=== PATIENT | male | born 1965 | race Caucasian/White ===

== ENCOUNTER 2018-04-26 07:37 | Day surgery (SDC) | payer BC ==
[~2018-04-26] VITALS: Ht 177.8 cm; Wt 124.7 kg
[~2018-04-26 07:37] MED LIST: ASPI1CHW2 PO; BYDU1INJ SC; CETI10TA PO; CORG20TA2 PO; DIGO0.259 PO; FARX1TAB3 PO; FISH1200 PO; FLON1SPR; GLUC15002 PO; HUMA100I5 SQ; IBUP200C25 PO; LIDOCAINE 2% INJ 100 MG/5 ML SDV (FOR ANES.) As Ordered ONE; LISI10TA4 PO; METF500T4 PO; POTA99TA PO; PROPOFOL 200 MG/20 ML VIAL As Ordered ONE; ROSU10TA5 PO; TRES1INJ SQ; VITA10006 PO; VITA100066 PO; VITA400C67 PO
[2018-04-26] MEDS ORDERED: NS 1,000 ML IV ONE (08:30)
[2018-04-26] MEDS ORDERED: PROPOFOL 200 MG/20 ML VIAL As Ordered ONE (09:17)
--- NOTE | 2018-04-26 09:27 | ROOR ---
Patient Name: Alanna Hirsch Procedure Date: 04/26/2018 9:05 AM Date of : 1965 Age: 52 Room: [facility] Gender: Male Note Status: Finalized Procedure: Colonoscopy Indications: Screening for colorectal malignant neoplasm Providers: Filippo ALLEN MD Referring MD: Ashlee Llanes NP Requesting Provider: Medicines: Monitored Anesthesia Care Complications: No immediate complications. Procedure: Pre-Anesthesia Assessment: - The heart rate, respiratory rate, oxygen saturations, blood pressure, adequacy of pulmonary ventilation, and response to care were monitored throughout the procedure. The Colonoscope was introduced through the anus and advanced to the cecum, identified by appendiceal orifice and ileocecal valve. The colonoscopy was performed without difficulty. The patient tolerated the procedure well. The quality of the bowel preparation was good. Findings: The perianal and digital rectal examinations were normal. A 8 mm polyp was found in the splenic flexure. The polyp was sessile. The polyp was removed with a cold snare. Resection and retrieval were complete. Mild sigmoid diverticulosis and small internal hemorrhoids. The exam was otherwise without abnormality on direct and retroflexion views. Impression: - One 8 mm polyp at the splenic flexure, removed with a cold snare. Resected and retrieved. - Mild sigmoid diverticulosis and small internal hemorrhoids. - The examination was otherwise normal on direct and retroflexion views. Recommendation: - Repeat colonoscopy in 5 years for surveillance. Filippo Allen MD Filippo ALLEN MD 04/26/2018 9:26:30 AM This report has been signed electronically. Number of Addenda: 0 Note Initiated On: 04/26/2018 9:05 AM Estimated Blood Loss: Estimated blood loss: none.
[2018-04-26 09:45] VITALS: BP 134/79
== END 2018-04-26 09:56 | disposition home or self-care (01) ==
LOC: M OPP 07:37
PROVIDERS: ATTEND Internal Medicine Gastroenterology
DX: Z12.11 Encounter for screening for malignant neoplasm of colon (principal); D12.3 Benign neoplasm of transverse colon; E10.9 Type 1 diabetes mellitus without complications; F17.220 Nicotine dependence, chewing tobacco, uncomplicated; R00.0 Tachycardia, unspecified; Z79.4 Long term (current) use of insulin; Z79.82 Long term (current) use of aspirin; Z79.899 Other long term (current) drug therapy; Z80.52 Family history of malignant neoplasm of bladder

== ENCOUNTER → 2018-12-06 | Outpatient (REF) | payer BC ==
[~2018-12-06] MED LIST changes: -LIDOCAINE 2% INJ 100 MG/5 ML SDV (FOR ANES.) As Ordered ONE; +METF-791 PO; -METF500T4 PO; -PROPOFOL 200 MG/20 ML VIAL As Ordered ONE; -ROSU10TA5 PO; +ROSU10TA6 PO
[2018-12-06 12:26] LABS: CREATININE, URINE 38.3 MG/DL; MALB URINE SIEMENS 7.7 MG/L; MAU/CREAT RATIO 20.1 MCG/MG (0.0-30.0)
== END ==
LOC: M SFHCCLAY 09:19
PROVIDERS: ATTEND Nurse Practitioner Family
DX: E11.9 Type 2 diabetes mellitus without complications (principal); I47.1 Supraventricular tachycardia; E78.2 Mixed hyperlipidemia; I10 Essential (primary) hypertension; I83.893 Varicose veins of bilateral lower extremities with other complications

== ENCOUNTER → 2019-09-25 | Outpatient (CLI) | payer BC ==
[~2019-09-25] MED LIST changes: -METF-791 PO; +METF-838 PO
--- NOTE | 2019-09-25 12:15 | REP ---
BILATERAL LOWER EXTREMITY VENOUS ULTRASOUND WITH DOPPLER: Reflux exam. HISTORY: Known venous insufficiency. FINDINGS: The deep veins are anechoic and fully compressible on two-dimensional scanning from the groin to the popliteal fossa bilaterally. Color flow imaging is homogeneous. Spectral Doppler interrogation demonstrates intact respiratory variation in flow normal manual augmentation of flow. There is no evidence of deep vein thrombosis. REFLUX FINDINGS: There is extensive bilateral deep and superficial system reflux. Multiple collaterals are seen off the greater saphenous vein bilaterally. Large varicose veins are seen connecting to the anterior accessory with each leg. In the right, the greater saphenous vein measures 5 mm, 4 mm, and 5 mm in AP dimension at the proximal, mid thigh, and knee level respectively. There is 5-second duration reflux in the proximal greater saphenous vein at the saphenofemoral junction with standing and bedtime. There is 4-second duration reflux at the knee in the greater saphenous vein with standing. On the right, there is 2-second duration reflux in the common femoral vein segment with bed tilt. There is 9-second duration reflux in the mid anterior accessory greater saphenous vein. There is 5-second duration reflux in the proximal superficial femoral vein on the right. The lesser saphenous vein on the right measures 3 mm in diameter. On the left, the greater saphenous vein dimensions are 5 mm, 4 mm, and 4 mm at the proximal, mid and knee level respectively. There is 2-second duration reflux at midthigh level in the greater saphenous vein with standing and 5-second duration reflux at the knee in the greater saphenous vein. There is 6-second duration reflux in the common femoral vein with the bed tilt and standing. 5-second duration reflux is observed in the anterior accessory greater saphenous vein. No other deep system reflux is seen on the left. The lesser saphenous vein is 2 mm in diameter. IMPRESSION: Bilateral deep and superficial system reflux as above. No evidence of DVT. Electronically Signed by Oscar Dyer MD 09/25/2019 12:17 P
== END ==
LOC: M RAD 09:34
PROVIDERS: ATTEND Physician Assistant
DX: I87.2 Venous insufficiency (chronic) (peripheral) (principal)

== ENCOUNTER 2019-11-28 06:14 | Day surgery (SDC) | payer BC ==
[~2019-11-28] VITALS: Ht 177.8 cm; Wt 123.4 kg
[~2019-11-28 06:14] MED LIST changes: +D31000TA2 PO; +HM P99TA PO; +OZEM2INJ SC; +VITA-243 PO
[2019-11-28] MEDS: ceFAZolin SOD 2 GM in IV 1 EA IV ONE (07:33)
[2019-11-28] MEDS ORDERED: fentaNYL 100 MCG/2 ML INJECTION (J3010) As Ordered ONE (07:34)
[2019-11-28] MEDS ORDERED: dexameTHASONE 4 MG/ML 1ML VIAL (J1100 PER 1MG) As Ordered ONE ×2 (07:34→08:03)
[2019-11-28] MEDS ORDERED: MIDAZOLAM INJ 2MG/2ML VIAL (J2250 PER 1MG) As Ordered ONE (07:34)
[2019-11-28] MEDS ORDERED: ACETAMINOPHEN 1000MG 100ML IV BTL (OFIRMEV) (J0131 PER 10MG) As Ordered ONE (07:34)
[2019-11-28] MEDS ORDERED: ONDANSETRON 4MG/2ML VIAL As Ordered ONE (07:34)
[2019-11-28] MEDS ORDERED: propofoL 200 MG/20 ML VIAL As Ordered ONE ×2 (07:34→08:03)
[2019-11-28] MEDS ORDERED: LIDOCAINE 2% 100MG/5ML SDV (FOR ANES.) As Ordered ONE (07:34)
[2019-11-28] MEDS: HEPARIN SOD (PORCINE) 5000UNITS/ML 1ML VIAL/SYRINGE As Ordered ONE (07:58)
[2019-11-28] MEDS ORDERED: KETAMINE HCL 200 MG/20 ML VIAL As Ordered ONE (08:03)
[2019-11-28] MEDS: LIDOCAINE W/EPINEPHRINE 1% 20ML VIAL As Ordered ONE (08:15)
[2019-11-28] MEDS: LIDOCAINE 1% MDV 20ML VIAL As Ordered ONE (08:15)
--- NOTE | 2019-11-28 08:33 | ROOPDOC ---
[facility] Report Of Operation Report of Operation DATE OF PROCEDURE: 11/28/19 PREPROCEDURE DIAGNOSES: RLE venous insufficiency POSTPROCEDURE DIAGNOSES: Same PROCEDURE: 1. US guided access right greater saphenous vein 2. Radiofrequency ablation right greater saphenous vein SURGEON: Delvis Jack MD ANESTHESIA: Monitored anesthesia care and local INDICATION FOR PROCEDURE: Very pleasant 54yo gentleman with longstanding venous insufficiency and varicose veins with h/o spontaneous bleeding from ankle reticular veins x2, compliant with compression and elevation but still symptomatic. Risks benefits and alternatives to RFA R GSV explained and patient is agreeable to proceed. Informed consent obtained. REPORT OF OPERATION: The patient was brought to the operating room in stable condition. MAC and antibiotics were administered without complication. A time out was performed. Local anesthesia was administered to the skin and subcutaneous tissue over the right GSV at the knee. A microneedle was used to access the vein, and a wire was advanced through this access under US guidance. A 7 Fr sheath was placed and flushed with saline. The RFA catheter was advanced up to the saphenofemoral junction. US confirmed the tip of the catheter to be 2 cm distal to the junction. Tumescence was injected around the length of the GSV under US guidance. The catheter tip was again checked with US to ensure it was 2 cm distal to the junction. Radiofrequency ablation was performed and a total of 8 cycles were performed. Pressure was held for hemostasis at the access site and steristrips applied. 4x4s, kerlex used to dress the thigh and the right leg was wrapped from the foot to the groin with dorene wrap. The patient was allowed to awaken from anesthesia and taken to recovery in stable condition. ESTIMATED BLOOD LOSS: Approximately 2 mL. COMPLICATIONS: None. PLAN: Follow up next week with RLE venous US and clinic appointment. Rx percocet given. DELVIS JACK MD Nov 28, 2019 08:33
[2019-11-28] MEDS ORDERED: OXYC1TAB23 PO (08:37)
[2019-11-28 09:38] VITALS: BP 111/65
== END 2019-11-28 10:15 | disposition home or self-care (01) ==
LOC: M SDC 06:14
PROVIDERS: ATTEND Surgery Vascular Surgery
DX: I87.2 Venous insufficiency (chronic) (peripheral) (principal)
CPT/HCPCS: 36475; 76940; C1894; J0131; J0690; J1100; J1644; J2250; J2405; J3010

== ENCOUNTER → 2019-12-01 | Outpatient (CLI) | payer BC ==
[~2019-12-01] MED LIST changes: +OXYC1TAB23 PO
--- NOTE | 2019-12-26 14:58 | REP ---
RIGHT LOWER EXTREMITY DOPPLER ULTRASOUND CLINICAL: Status post ablation with pain. TECHNIQUE: Real-time alvarez scale and color Doppler evaluation using linear high frequency transducer. FINDINGS: Ultrasound examination of the right lower extremity deep venous structures from the common femoral vein to the popliteal vein demonstrates normal compressibility, flow, and wave patterns in response to respiration and augmentation. There is no evidence for deep vein thrombosis. The greater saphenous vein is thrombosed and consistent with history of ablation. IMPRESSION: No evidence for deep vein thrombosis. MTDD
== END ==
LOC: M RAD 08:49
PROVIDERS: ATTEND Surgery Vascular Surgery
DX: I87.2 Venous insufficiency (chronic) (peripheral) (principal)

== ENCOUNTER → 2020-08-31 | Outpatient (REF) | payer BC ==
[~2020-08-31] MED LIST changes: -HM P99TA PO; +LISI10TA22 PO; -LISI10TA4 PO; +POTA99TA14 PO
[2020-08-31 19:00] LABS: BASO # 0.1 10^3/uL (0.0-0.2); BASO % 0.9 % (0.0-1.0); EOS % 9.1 % (0.0-3.0); HEMATOCRIT 49.3 % (42.0-52.0); HEMOGLOBIN 15.5 g/dl (13.5-17.5); LYMPH # 3.7 10^3/uL (1.5-5.0); LYMPH % 34.4 % (24.0-44.0); MEAN CORPUSCULAR HGB CONC 31.4 g/dl (32.0-36.5); MEAN CORPUSCULAR VOLUME 85.9 fl (80.0-96.0); MONO % 9.5 % (2.0-8.0); NEUTROPHILS # 4.9 10^3/uL (1.5-8.5); NEUTROPHILS % 45.4 % (36.0-66.0); PLATELET COUNT, AUTOMATED 213 10^3/uL (150-450); RED BLOOD COUNT 5.74 10^6/uL (4.30-6.10); WHITE BLOOD COUNT 10.8 10^3/uL (4.0-10.0)
[2020-08-31 19:13] LABS: ALT/SGPT 46 U/L (12-78); BILIRUBIN,TOTAL 0.6 MG/DL (0.2-1.0); BLOOD UREA NITROGEN 16 MG/DL (7-18); CALCIUM LEVEL 9.4 MG/DL (8.5-10.1); CARBON DIOXIDE LEVEL 29 MEQ/L (21-32); CHLORIDE LEVEL 103 MEQ/L (98-107); CHOLESTEROL LEVEL 93 MG/DL (<200); CREATININE FOR GFR 0.97 MG/DL (0.70-1.30); FREE T4 0.78 NG/DL (0.76-1.46); GLOMERULAR FILTRATION RATE > 60.0 (>56); GLUCOSE, FASTING 175 MG/DL (70-100); HDL CHOLESTEROL 31 MG/DL (>40); LDL CHOLESTEROL 15 MG/DL (<100); NON-HDL-C 62 MG/DL; POTASSIUM SERUM 4.6 MEQ/L (3.5-5.1); SODIUM LEVEL 138 MEQ/L (136-145); TOTAL PROTEIN 6.9 GM/DL (6.4-8.2); TRIGLYCERIDES LEVEL 236 MG/DL (<150)
[2020-08-31 19:19] LABS: HEMOGLOBIN A1c 7.5 %
[2020-08-31 19:33] LABS: CREATININE, URINE 63.6 MG/DL; MALB URINE SIEMENS 7.8 MG/L; MAU/CREAT RATIO 12.2 MCG/MG (0.0-30.0)
== END ==
LOC: M SFHCCLAY 09:46
PROVIDERS: ATTEND Nurse Practitioner Family
DX: I47.1 Supraventricular tachycardia (principal); E78.2 Mixed hyperlipidemia; I10 Essential (primary) hypertension; E11.9 Type 2 diabetes mellitus without complications; I83.893 Varicose veins of bilateral lower extremities with other complications; R21 Rash and other nonspecific skin eruption

== ENCOUNTER → 2022-05-01 | Outpatient (REF) | payer BC ==
[~2022-05-01] MED LIST changes: -D31000TA2 PO; +VITA100093 PO
[2022-05-01 18:04] LABS: BASO # 0.1 10^3/uL (0.0-0.2); BASO % 0.8 % (0.0-1.0); EOS # 0.5 10^3/uL (0.0-0.5); EOS % 4.6 % (0.0-3.0); HEMATOCRIT 47.8 % (42.0-52.0); HEMOGLOBIN 15.2 g/dl (13.5-17.5); LYMPH # 3.2 10^3/uL (1.5-5.0); LYMPH % 32.6 % (24.0-44.0); MEAN CORPUSCULAR HEMOGLOBIN 27.3 pg (27.0-33.0); MEAN CORPUSCULAR HGB CONC 31.8 g/dl (32.0-36.5); MEAN CORPUSCULAR VOLUME 85.8 fl (80.0-96.0); PLATELET COUNT, AUTOMATED 212 10^3/uL (150-450); RED BLOOD COUNT 5.57 10^6/uL (4.30-6.10); WHITE BLOOD COUNT 9.9 10^3/uL (4.0-10.0)
[2022-05-01 18:25] LABS: CREATININE, URINE 85.2 MG/DL; MAU/CREAT RATIO 24.6 MCG/MG (0.0-30.0)
[2022-05-01 18:27] LABS: ALBUMIN 4.1 G/DL (3.2-5.2); ALKALINE PHOSPHATASE 57 U/L (46-116); ALT/SGPT 49 U/L (7.0-40); AST/SGOT 31 U/L (<34); BILIRUBIN,TOTAL 0.5 MG/DL (0.3-1.2); BLOOD UREA NITROGEN 16 MG/DL (9-23); CALCIUM LEVEL 9.3 MG/DL (8.5-10.1); CARBON DIOXIDE LEVEL 28 MMOL/L (20-31); CHLORIDE LEVEL 101 MMOL/L (98-107); CHOLESTEROL LEVEL 73 MG/DL (<200); CHOLESTEROL RISK RATIO 2.51 (<5); CREATININE FOR GFR 0.96 MG/DL (0.70-1.30); GLOMERULAR FILTRATION RATE > 60.0 (>56); GLUCOSE, FASTING 152 MG/DL (60-100); LDL CHOLESTEROL 9.4 MG/DL (<100); NON-HDL-C 44 MG/DL; SODIUM LEVEL 135 MMOL/L (136-145); TOTAL PROTEIN 6.6 G/DL (5.7-8.2); TRIGLYCERIDES LEVEL 173 MG/DL (<150)
[2022-05-01 18:28] LABS: FREE T4 0.97 NG/DL (0.89-1.76); THYROID STIMULATING HORMONE 2.267 uIU/ML (0.55-4.78)
== END ==
LOC: M SFHCCLAY 10:46
PROVIDERS: ATTEND Nurse Practitioner Family
DX: I47.1 Supraventricular tachycardia (principal); E78.2 Mixed hyperlipidemia; I10 Essential (primary) hypertension; E11.9 Type 2 diabetes mellitus without complications; I83.893 Varicose veins of bilateral lower extremities with other complications

== ENCOUNTER 2023-08-20 07:45 | Day surgery (SDC) | payer BC ==
[~2023-08-20] VITALS: Ht 177.8 cm; Wt 110.8 kg
[~2023-08-20 07:45] MED LIST changes: +DIGO0.253 PO; +GLUCTAB PO; +HUMA50IN4 SC; +KP F1200 PO; +KRIL1CAP PO; +NADO40TA6 PO; -ROSU10TA6 PO; +ROSU10TA61 PO; +TIRZ12.5 SC; +VITA400C53 PO
[2023-08-20] MEDS: NS 1,000 ML IV ONE (08:08)
[2023-08-20] MEDS ORDERED: propofoL 500 MG/50 ML VIAL As Ordered ONE (08:43)
[2023-08-20] MEDS ORDERED: LIDOCAINE 2% 100MG/5ML SDV (FOR ANES.) As Ordered ONE (08:43)
[2023-08-20] MEDS ORDERED: ePHEDrine SULFATE 25 MG/5 ML(5MG/ML) SYRINGE As Ordered ONE (09:08)
[2023-08-20 09:14] VITALS: TEMP 98.3
[2023-08-20 09:34] VITALS: BP 114/55; O2SAT 96
== END 2023-08-20 09:41 | disposition home or self-care (01) ==
LOC: M OPP 07:45
PROVIDERS: ATTEND Internal Medicine Gastroenterology
DX: Z12.11 Encounter for screening for malignant neoplasm of colon (principal); Z86.010 Personal history of colon polyps; D12.3 Benign neoplasm of transverse colon; D12.2 Benign neoplasm of ascending colon; D12.0 Benign neoplasm of cecum; K64.8 Other hemorrhoids; K57.30 Diverticulosis of large intestine without perforation or abscess without bleeding; E11.9 Type 2 diabetes mellitus without complications; E78.00 Pure hypercholesterolemia, unspecified; I10 Essential (primary) hypertension; Z79.899 Other long term (current) drug therapy; Z79.4 Long term (current) use of insulin; Z79.82 Long term (current) use of aspirin; Z79.85 Long-term (current) use of injectable non-insulin antidiabetic drugs; Z79.84 Long term (current) use of oral hypoglycemic drugs

== ENCOUNTER → 2023-09-06 | Outpatient (REF) | payer BC ==
[2023-09-06 18:24] LABS: BASO # 0.1 10^3/uL (0.0-0.2); EOS # 0.6 10^3/uL (0.0-0.5); EOS % 5.4 % (0.0-3.0); HEMATOCRIT 45.1 % (42.0-52.0); HEMOGLOBIN 14.4 g/dl (13.5-17.5); LYMPH # 3.3 10^3/uL (1.5-5.0); MEAN CORPUSCULAR HEMOGLOBIN 27.4 pg (27.0-33.0); MEAN CORPUSCULAR HGB CONC 31.9 g/dl (32.0-36.5); MEAN CORPUSCULAR VOLUME 85.7 fl (80.0-96.0); MONO % 9.8 % (2.0-8.0); NEUTROPHILS % 49.8 % (36.0-66.0); PLATELET COUNT, AUTOMATED 240 10^3/uL (150-450); RED BLOOD COUNT 5.26 10^6/uL (4.30-6.10); WHITE BLOOD COUNT 10.1 10^3/uL (4.0-10.0)
[2023-09-06 18:37] LABS: HEMOGLOBIN A1c 6.6 % (4.0-6.0)
[2023-09-06 18:57] LABS: CREATININE, URINE 82.7 MG/DL; MAU/CREAT RATIO 45.9 MCG/MG (0.0-30.0)
[2023-09-06 19:02] LABS: ALBUMIN 3.9 G/DL (3.2-5.2); ALKALINE PHOSPHATASE 59 U/L (46-116); ALT/SGPT 25 U/L (7.0-40); AST/SGOT 9 U/L (<34); BILIRUBIN,TOTAL 0.7 MG/DL (0.3-1.2); BLOOD UREA NITROGEN 17 MG/DL (9-23); CALCIUM LEVEL 9.5 MG/DL (8.5-10.1); CARBON DIOXIDE LEVEL 30 MMOL/L (20-31); CHLORIDE LEVEL 102 MMOL/L (98-107); CHOLESTEROL LEVEL 83 MG/DL (<200); CHOLESTEROL RISK RATIO 2.39 (<5); CREATININE FOR GFR 0.85 MG/DL (0.70-1.30); GLOMERULAR FILTRATION RATE > 60.0 (>56); GLUCOSE, FASTING 104 MG/DL (60-100); HDL CHOLESTEROL 34.6 MG/DL (>40); LDL CHOLESTEROL 27.4 MG/DL (<100); NON-HDL-C 48.4 MG/DL; POTASSIUM SERUM 5.1 MMOL/L (3.5-5.1); SODIUM LEVEL 138 MMOL/L (136-145); TOTAL PROTEIN 6.5 G/DL (5.7-8.2); TRIGLYCERIDES LEVEL 105 MG/DL (<150)
[2023-09-06 19:03] LABS: THYROID STIMULATING HORMONE 2.292 uIU/ML (0.55-4.78)
[2023-09-06 19:05] LABS: FREE T4 0.94 NG/DL (0.89-1.76)
== END ==
LOC: M SFHCCLAY 11:59
PROVIDERS: ATTEND Nurse Practitioner Family
DX: E78.2 Mixed hyperlipidemia (principal); I10 Essential (primary) hypertension; E11.9 Type 2 diabetes mellitus without complications; I83.893 Varicose veins of bilateral lower extremities with other complications; R21 Rash and other nonspecific skin eruption

== ENCOUNTER → 2024-12-02 | Outpatient (REF) | payer BC ==
[~2024-12-02] MED LIST changes: +NADO40TA40 PO; -NADO40TA6 PO
[2024-12-02 18:33] LABS: BASO # 0.1 10^3/uL (0.0-0.2); BASO % 0.7 % (0.0-1.0); EOS # 0.5 10^3/uL (0.0-0.5); EOS % 4.9 % (0.0-3.0); LYMPH # 3.5 10^3/uL (1.5-5.0); LYMPH % 37.0 % (24.0-44.0); MONO # 1.0 10^3/uL (0.0-0.8); MONO % 10.1 % (2.0-8.0); NEUTROPHILS # 4.5 10^3/uL (1.5-8.5); NEUTROPHILS % 46.6 % (36.0-66.0); PLATELET COUNT, AUTOMATED 226 10^3/uL (150-450)
[2024-12-02 19:00] LABS: CREATININE, URINE 86.6 MG/DL; MALB URINE SIEMENS 28.0 MG/L; MAU/CREAT RATIO 32.3 MCG/MG (0.0-30.0)
[2024-12-02 19:01] LABS: ALT/SGPT 38 U/L (7.0-40); AST/SGOT 26 U/L (<34); CALCIUM LEVEL 9.4 MG/DL (8.5-10.1); CARBON DIOXIDE LEVEL 28 MMOL/L (20-31); CHLORIDE LEVEL 102 MMOL/L (98-107); CHOLESTEROL LEVEL 76 MG/DL (<200); CHOLESTEROL RISK RATIO 2.52 (<5); CREATININE FOR GFR 0.90 MG/DL (0.70-1.30); DIGOXIN LEVEL 1.3 NG/ML (0.8-2.0); GLOMERULAR FILTRATION RATE > 90.0 (>56); LDL CHOLESTEROL 11.5 MG/DL (<100); NON-HDL-C 45.9 MG/DL; POTASSIUM SERUM 4.8 MMOL/L (3.5-5.1); SODIUM LEVEL 137 MMOL/L (136-145); TRIGLYCERIDES LEVEL 172 MG/DL (<150)
[2024-12-02 19:03] LABS: FREE T4 1.08 NG/DL (0.89-1.76)
== END ==
LOC: M SFHCCLAY 10:21
PROVIDERS: ATTEND Nurse Practitioner Family
DX: I10 Essential (primary) hypertension (principal); E11.9 Type 2 diabetes mellitus without complications; E78.2 Mixed hyperlipidemia; I83.893 Varicose veins of bilateral lower extremities with other complications